=== PATIENT | female | born 1965 | race Caucasian/White ===

== ENCOUNTER → 2023-05-26 | Outpatient (CLI) | payer BC ==
[2023-05-26 10:01] LABS: BASO # 0.02 K/mm3 (0.02-0.10); EOS # 0.17 K/mm3 (0.04-0.40); EOS % 3.6 % (1.0-5.0); HEMATOCRIT 44.7 % (37.0-47.0); HEMOGLOBIN 14.4 g/dL (12.5-16.0); LYMPH# 1.59 K/mm3 (1.50-4.00); MEAN CELL VOLUME 93 fl (78-100); MEAN CORPUSCULAR HEMOGLOBIN 30 pg (27-31); MEAN CORPUSCULAR HGB CONC 32 g/dL (33-37); MEAN PLATELET VOLUME 10.1 fl (7.4-10.4); MONO # 0.32 K/mm3 (0.20-0.80); NEU # 2.58 K/mm3 (1.40-6.50); PLATELET COUNT 352 K/mm3 (130-400); RED CELL DISTRIBUTION WIDTH 11.8 % (11.5-14.5); WHITE BLOOD COUNT 4.7 K/mm3 (4.8-10.8)
[2023-05-26 10:10] LABS: ALBUMIN 4.8 g/dL (3.5-5.0)
[2023-05-26 10:11] LABS: CALCIUM 10.1 mg/dL (8.3-10.5)
[2023-05-26 10:12] LABS: TOTAL PROTEIN 7.4 g/dL (6.4-8.3)
[2023-05-26 10:14] LABS: TOTAL BILIRUBIN 0.4 mg/dL (0.2-1.2)
== END ==
LOC: LAB 09:37
PROVIDERS: Physician Assistant
DX: Z13.29 Encounter for screening for other suspected endocrine disorder (principal); N64.4 Mastodynia; E78.5 Hyperlipidemia, unspecified; K90.9 Intestinal malabsorption, unspecified

== ENCOUNTER → 2023-05-29 | Outpatient (CLI) | payer BC | LOC: MAMMO 07:00 | DX: R59.0 Localized enlarged lymph nodes (principal); N64.4 Mastodynia ==

== ENCOUNTER → 2023-07-26 | Outpatient (CLI) | payer BC | LOC: RAD 15:57 → VAS 15:57 → RAD 16:30 | DX: I08.0 Rheumatic disorders of both mitral and aortic valves (principal) ==